=== PATIENT | male | born 1975 | race African-American/Black ===

== ENCOUNTER 2019-02-08 06:17 | Day surgery (SDC) | payer BC | END 2019-02-08 10:20 | disposition home or self-care (01) | LOC: D.OPS 06:17 | DX: C61 Malignant neoplasm of prostate (principal); Z01.812 Encounter for preprocedural laboratory examination ==

== ENCOUNTER → 2019-02-19 11:11 | Outpatient (CLI) | payer BC ==
[2019-02-08 07:41] VITALS: BMI 35.0
[~2019-02-19 11:11] MED LIST: HYDRALAZINE HCL50 MG
== END | disposition home or self-care (01) ==
LOC: D.CT 10:00 → D.NM 10:00 → D.CT 11:11
PROVIDERS: ATTEND Urology
DX: C61 Malignant neoplasm of prostate (principal)

== ENCOUNTER → 2019-03-14 15:18 | Outpatient (CLI) | payer BC ==
[2019-02-08 07:41] VITALS: BMI 35.0
== END | disposition home or self-care (01) ==
LOC: D.RAD 15:18
PROVIDERS: ATTEND Urology
DX: R94.8 Abnormal results of function studies of other organs and systems (principal)

== ENCOUNTER 2019-04-05 00:39 | Inpatient (IN) | payer MEDICARE ==
[~2019-04-05] VITALS: Ht 180.3 cm; Wt 101.3 kg
[~2019-04-05 00:39] MED LIST changes: -HYDRALAZINE HCL50 MG; +HYDRALAZINE HCL50 MG PO
[2019-04-05 01:46] LABS: HEMOGLOBIN 14.2 g/dL (13.5-17.5); MCH 30.9 pg (26.0-34.0); MCHC 34.6 g/dL (31.0-37.0); MCV 89.1 fL (80.0-100.0); MEAN PLATELET VOLUME 11.4 fL (7.4-10.4); PLATELET COUNT 243 10x3/uL (130-400); RDW 13.1 % (11.5-14.5); WBC 21.7 10x3/uL (4.8-10.8)
[2019-04-05 01:47] LABS: APTT 42.9 SECONDS (22.8-39.4); INR 1.21 (0.85-1.17); PROTIME 14.8 SECONDS (11.6-15.0)
[2019-04-05 01:51] LABS: ALBUMIN 3.1 g/dL (3.4-5.0); ALKALINE PHOSPHATASE 93 U/L (46-116); ALT (SGPT) 52 U/L (10-68); BILIRUBIN - TOTAL 1.66 mg/dL (0.2-1.3); CALC OSMOLALITY 275 mosm/kg (275-300); CALCIUM 8.6 mg/dL (8.5-10.1); CARBON DIOXIDE 26.1 mmol/L (21.0-32.0); CHLORIDE - SERUM 98 mmol/L (98-107); CREATININE - SERUM 1.5 mg/dL (0.6-1.3); GLUCOSE 149 mg/dL (74-106); POTASSIUM - SERUM 3.2 mmol/L (3.5-5.1); PROTEIN - SERUM 8.3 g/dL (6.4-8.2); SODIUM 137 mmol/L (136-145); UREA NITROGEN 11 mg/dL (7-18); eGFR NON AFRICAN AMERICAN 54 mL/min (90-120)
[2019-04-05 02:02] LABS: APPEARANCE CLOUDY (CLEAR); BILIRUBIN NEGATIVE (NEGATIVE); COLOR DK YELLOW (YELLOW); GLUCOSE NEGATIVE (NEGATIVE); KETONE NEGATIVE (NEGATIVE); NITRITE NEGATIVE (NEGATIVE); PROTEIN 3+ mg/dL (NEGATIVE)
[2019-04-05 02:03] LABS: BACTERIA MODERATE /hpf (NONE SEEN); EPITHELIAL CELLS 0-5 /hpf (0-5); GRANULAR CAST 0-5 /lpf (NONE SEEN); MUCUS <1+ /lpf (NONE SEEN); RED CELLS - URINE 0-5 /hpf (0-5)
[2019-04-05 02:04] LABS: CKMB 0.3 U/L (0.0-3.6); CREATINE KINASE 135 UL (21-232); TROPONIN-I < 0.017 ng/mL (0.000-0.060)
[2019-04-05 02:06] LABS: LYMPHOCYTES 4 % (15-50); MONOCYTES 7 % (2-11); NEUTROPHILS 71 % (40-80); PLATELET ESTIMATE NORMAL
[2019-04-05 05:27] VITALS: BMI 34.1
--- NOTE | 2019-04-05 07:10 | NUR ---
REPORT RECEIVED FROM CHIEF DEPUTY CLERK/BAILIFF AND PATIENT CARE ASSUMED. PATIENT IS AWAKE, ALERT AND ORIENTED X 4. PATIENT IS STABLE AND VSS. PATIENT DENIES ANY NEEDS OR PAIN. WILL CONTINUE WITH PLAN OF CARE. SR UP X 2 BED IN LOW POSTION AND CALL LIGHT IN REACH.
[2019-04-05 08:22] VITALS: BP 128/76
[2019-04-05 11:35] VITALS: Ht 180.3 cm; Wt 101.3 kg
[2019-04-05 13:22] VITALS: BP 131/76
[2019-04-05 14:41] LABS: UDS - AMPHET NEGATIVE QUAL (NEGATIVE); UDS - BARB NEGATIVE QUAL (NEGATIVE); UDS - BENZO NEGATIVE QUAL (NEGATIVE); UDS - COCAINE NEGATIVE QUAL (NEGATIVE); UDS - OPIATE POSITIVE QUAL (NEGATIVE); UDS - PCP NEGATIVE QUAL (NEGATIVE); UDS - THC NEGATIVE QUAL (NEGATIVE)
--- NOTE | 2019-04-05 15:15 | NUR ---
PATIENT HAS BEEN WALKING UNIT FREQUENTLY. MOTHER AT BS. DR TORRES IN ROOM. PATIENT DENIES ANY NEEDS OR PAIN. PATIENT IS STABLE AND VSS. WILL CONTINUE TO MONITOR.
[2019-04-05 17:31] VITALS: BP 118/77
--- NOTE | 2019-04-05 19:30 | NUR ---
REPORT RECIVED. PT SEMI FOWLERS IN BED. NO S/S OF DISTRESS. BREATHING EVEN AND UNLABORED. CALL LIGHT WITHIN REACH. BED IN LOWEST POSITION. PT ZULEIMA ANY NEEDS AT THIS TIME. WILL CONT WITH POC.
[2019-04-05 20:00] VITALS: BP 125/66
--- NOTE | 2019-04-05 23:55 | NUR ---
PT RESTING AT THIS TIME. MOTHER SLEEPING AT BEDSIDE. NO S/S OF DISTRESS. BREATHING EVEN AND UNLABORED. CALL LIGHT WITHIN REACH. WILL CONT WITH POC.
[2019-04-06] VITALS: BP 127/74
[2019-04-06 04:00] VITALS: BP 127/71
--- NOTE | 2019-04-06 06:30 | NUR ---
PT RESTING AT THIS TIME. NO S/S OF DISTRESS. BREATHING EVEN AND UNLABORED. PT DENIES ANY NEEDS AT THIS TIME. CALL LIGHT WITHIN REACH. PIV PATENT AND INTACTED. WILL CONT WITH POC.
[2019-04-06 06:39] LABS: ANION GAP 13.6 mmol/L (8-16); CALCIUM 8.6 mg/dL (8.5-10.1); CARBON DIOXIDE 23.1 mmol/L (21.0-32.0); CREATININE - SERUM 1.3 mg/dL (0.6-1.3); MAGNESIUM - SERUM 2.2 mg/dL (1.8-2.4); PHOSPHOROUS 2.1 mg/dL (2.5-4.9)
[2019-04-06 06:40] LABS: POTASSIUM - SERUM 3.7 mmol/L (3.5-5.1)
[2019-04-06 06:42] LABS: BASOPHILS 0.3 % (0-2); EOSINOPHILS 1.4 % (0-7); HEMATOCRIT 34.6 % (42.0-54.0); HEMOGLOBIN 11.6 g/dL (13.5-17.5); IMMATURE GRANULOCYTES 1.3 % (0-5); LYMPHOCYTES 12.1 % (15-50); MCH 30.7 pg (26.0-34.0); MCHC 33.5 g/dL (31.0-37.0); MEAN PLATELET VOLUME 11.4 fL (7.4-10.4); NEUTROPHILS 69.9 % (40-80); PLATELET COUNT 232 10x3/uL (130-400); RBC 3.78 10x6/uL (4.20-6.10); RDW 13.7 % (11.5-14.5)
[2019-04-06 06:45] LABS: MCV 91.5 fL (80.0-100.0); WBC 14.1 10x3/uL (4.8-10.8)
[2019-04-06 09:49] VITALS: BP 132/71
--- NOTE | 2019-04-06 10:49 | NUR ---
PATIENT IS ALERT AND ORIENTED AND UP AT [place]. MOTHER AT BEDSIDE. FAMILY IS VERY CONSERNED ABOUT THIS PATIENTS CARE AND WANTS TO KNOW IF WE ARE UNDERSTAFFED. I REASSURE HER THAT THE PATIENT WILL HAVE EXXCELLENT CARE AND WE ARE COMFORTABLY STAFFED. A RESPIRATORY CULTURE CUP IS BROUGHT TO ROOM AND PATIENT SHOWN HOW TO USE IT. PATIENT REPORTS THAT HE ASKED RESPIRATORY STAFF TO CHANGE HIS MEDICATION BECAUSE THE RESPIRATORY MEDICATIONS ARE CAUSEING HIM NOT TO SLEEP.
[2019-04-06 12:21] VITALS: BP 137/79
--- NOTE | 2019-04-06 14:52 | NUR ---
respiratory culture brought to lab. family at bedside. Patient denies any needs at this time.
--- NOTE | 2019-04-06 16:51 | EC ---
PATIENT:KAMRON KELLY DATE OF SERVICE: 04/05/19 SEX: M MEDICAL RECORD: [id number] DATE OF : [birth year] LOCATION:D.M2 D.210 AGE OF PATIENT: 43 ADMISSION DATE: 04/05/19 REFERRING PHYSICIAN: INTERPRETING PHYSICIAN: MICHAEL ZHANG MD ECHOCARDIOGRAM REPORT ECHO CHARGES 4 ECHO COMPLETE Date: 04/05/19 CLINICAL DIAGNOSIS: CHF ECHOCARDIOGRAPHIC MEASUREMENTS (adult normal given) AC root (d.<3.7cm) 3.3 cm LV Septum d (<1.2 cm> 1.7 cm Valve Excursion 2.3 cm LV Septum (systole) 2.3 cm Left Atria (s.<4.0cm> 4.0 cm LVPW d(<1.2cm) 1.7 cm RV (d.<2.3cm) 2.4 cm LVPW (sytole) 2.3 cm LV diastole(<5.6CM) 4.8 cm MV E-F(>70mm/sec) cm LV systole 2.6 cm LVOT Diameter 2.1 cm MV exc.(>10mm) cm Est.ejection fraction (50-75%) % DOPPLER: LVIT cm/sec A 53.0 cm/sec E 74.0 cm/sec LA cm/sec RVSP 25.3 mmHg LVOT 145 cm/sec AOP1/2T m/s Asc. Ao 180 cm/sec RVOT 75.0 cm/sec RA cm/sec PA 104 cm/sec AV Gradient Peak 13.0 mmHg AV Mean 6.5 mmHg AV Area 2.4 cm MV Gradient Peak 3.2 mmHg MV Mean 1.6 mmHg MV Area cm COMMENTS: Catering Assistant: Marcos TORRESOE Splicer Operator: 1 Dr. Zhang TAPE# PACS Pericardial Effusion N DATE OF SERVICE: 04/05/2019 ECHOCARDIOGRAM DATE OF SERVICE: 04/05/2019 FINDINGS: 1. Left ventricular chamber size is within normal limits. Left ventricular systolic function is normal. Overall ejection fraction estimated at 55%. 2. Left atrium is enlarged at 4.0 cm. Right atrium and right ventricle chamber ECHOCARDIOGRAM REPORT [id number] KAMRON KELLY sizes are as well mildly dilated. 3. Valvular structures have normal structure and motion. 4. Doppler interrogation reveals no significant valvular insufficiency or stenosis and pulmonary systolic pressure is normal estimated at 25 mmHg. 5. No evidence of pericardial effusion or left ventricular thrombus. TRANSINT:[id number] Voice Confirmation ID: [id number] DOCUMENT ID: [id number] MICHAEL ZHANG MD at 1651 CC: [id number] DICTATION DATE: 04/06/19 1050 LACING PRESSER: 04/06/19 1106 ADM IN [facility] [id number] [place] [address]
[2019-04-06 17:31] VITALS: BP 133/81
--- NOTE | 2019-04-06 19:41 | NUR ---
PT ALERT AND O X4 BED LOW AND LOCKED WITH SR X1 AND CALL LIGHT IN REACH LUNGS CLEAR WITH A LITTLE DEMINUISHED AIRFLOW O2 NOT IN USE AT THIS TIME AND PT DENIES NEEDS
[2019-04-06 20:00] VITALS: BP 132/68
[2019-04-07] VITALS: BP 130/72
--- NOTE | 2019-04-07 04:03 | NUR ---
I have reviewed this patient and I concur with the Shift Assessment completed by the Licensed Practical Nurse today this shift.
[2019-04-07 04:30] VITALS: BP 125/72
[2019-04-07 05:03] LABS: HEMATOCRIT 34.6 % (42.0-54.0); HEMOGLOBIN 11.4 g/dL (13.5-17.5); MCH 30.4 pg (26.0-34.0); MCHC 32.9 g/dL (31.0-37.0); MCV 92.3 fL (80.0-100.0); MEAN PLATELET VOLUME 10.7 fL (7.4-10.4); PLATELET COUNT 269 10x3/uL (130-400); RBC 3.75 10x6/uL (4.20-6.10); RDW 13.6 % (11.5-14.5); WBC 12.3 10x3/uL (4.8-10.8)
[2019-04-07 05:13] LABS: ANION GAP 12.9 mmol/L (8-16); CALCIUM 8.7 mg/dL (8.5-10.1); CARBON DIOXIDE 25.6 mmol/L (21.0-32.0); CREATININE - SERUM 1.2 mg/dL (0.6-1.3); POTASSIUM - SERUM 3.5 mmol/L (3.5-5.1)
[2019-04-07 05:16] LABS: PHOSPHOROUS 3.6 mg/dL (2.5-4.9)
[2019-04-07 05:40] LABS: EOSINOPHILS 2 % (0-7); LYMPHOCYTES 26 % (15-50); MONOCYTES 10 % (2-11); NEUTROPHILS 60 % (40-80); PLATELET ESTIMATE NORMAL; PLATELET MORPHOLOGY GIANT PLTS PRESENT
--- NOTE | 2019-04-07 07:51 | NUR ---
PATIENT IS ALERT AND ORIENTED. HE IS UP AND WALKING THE HALLS AND STATES THAT HE IS READY TO GO HOME THIS MORNING. HE IS QUESTIONING WHY HE NEEDS A XRAY BEFORE DISCHARE. HE STATES HE HAS A APPOINTMENT WITH DR DECKER NEXT WEEK. HE STATES CONSERNS ABOUT HIS INSURANCE AND THE COST OF THE HOSPITAL STAY. HE HAS A QUESTION ABOUT ALMOST EVERY MEDICATION OR PROCEDURE. SIGNIFICANT OTHER IS AT BEDSIDE.
[2019-04-07 08:06] VITALS: BP 145/75
[2019-04-07 12:26] VITALS: BP 141/79
--- NOTE | 2019-04-07 13:48 | MORECARE ---
CASE MANAGEMENT DISCHARGE SUMMARY PATIENT: KAMRON KELLY UNIT: [id number] ADM DATE: 04/05/19 AGE: 43 : [birth year] SEX: M ROOM/BED: D.2103 AUTHOR: VIDHYA PHILLIPS PHYSICIAN: REFERRING PHYSICIAN: RUPERT DECKER DO DATE OF SERVICE: 04/07/19 Discharge Plan Patient Name: KAMRON KELLY [facility] : 1975 Planned Disposition: Anticipated Discharge Date: Discharge Date: Expected LOS: Initial Reviewer: DORIS Initial Review Date: 04/07/2019 Generated: 04/07/19 2:47 pm DCPIA - Discharge Planning Initial Assessment Updated by DORIS: Madelin Santacruz on 04/07/19 1:47 pm * Is the patient Alert and Oriented? Yes * How many steps to enter\exit or inside your home? * PCP belle * [facility] [address] * Preadmission Environment Home with Family * ADLs Independent * Verbal permission to speak to the caregivers and representatives has been obtained from the patient. N/A * Additional services required to return to the preadmission environment? No * Can the patient safely return to the preadmission environment? Yes * Has this patient been hospitalized within the prior 30 days at any hospital? No Patient Name: KAMRON KELLY Page [id number] at 1348 All edits/amendments must be made on the electronic document DICTATION DATE: 04/07/19 1347 HORSESHOER: NEETA 04/07/19 1347 RPT#: [id number] DC DATE: STATUS: ADM IN [facility] [address] [place] [address] END OF REPORT
--- NOTE | 2019-04-07 13:55 | MORECARE ---
CASE MANAGEMENT DISCHARGE SUMMARY PATIENT: KAMRON KELLY UNIT: [id number] ADM DATE: 04/05/19 AGE: 43 : [birth year] SEX: M ROOM/BED: D.2885 AUTHOR: VIDHYA PHILLIPS PHYSICIAN: REFERRING PHYSICIAN: RUPERT DECKER DO DATE OF SERVICE: 04/07/19 Discharge Plan Patient Name: KAMRON KELLY Facility: [facility]:[place] : 1975 Planned Disposition: Anticipated Discharge Date: Discharge Date: Expected LOS: Initial Reviewer: [email or web address] Initial Review Date: 04/07/2019 Generated: 04/07/19 2:54 pm Comments DCP- Discharge Planning Updated by [id number]: Madelin Santacruz on 04/07/19 12:[address] Patient Name: KAMRON KELLY Admission Status: ER Accout number: [id number] Admission Date: 04-05-2019 : 1975 Admission Diagnosis: Attending: RUPERT DECKER Current LOS: 2 Anticipated DC Date: Planned Disposition: Primary Insurance: [employer] Discharge Planning Comments: CM MET WITH PT AFTER VERBAL CONSENT TO DO INITIAL CM ASSESSMENT. CM EXPLAINED THE ROLE OF A CM AND SERVICES AVAILABLE LIKE HOME HEALTH, REHAB AND DME. PT STATED HE WILL RETURN HOME WITH FAMILY. PT FEELS THIS IS A SAFE DC PLAN AND DENIES AND CM NEEDS AT THIS TIME. CM WILL CONTINUE TO FOLLOW. Information Systems Architect: Madelin Santacruz DCPIA - Discharge Planning Initial Assessment Updated by [email or web address]: Madelin Santacruz on 04/07/19 1:47 pm * Is the patient Alert and Oriented? Yes * How many steps to enter\exit or inside your home? * PCP belle * Pharmacy [facility] [address] * Preadmission Environment Home with Family * ADLs Independent * Verbal permission to speak to the caregivers and representatives has been obtained from the patient. N/A * Additional services required to return to the preadmission environment? No * Can the patient safely return to the preadmission environment? Yes * Has this patient been hospitalized within the prior 30 days at any hospital? No Last DP export: 04/07/19 12:48 p Patient Name: KAMRON KELLY Page [id number] at 1355 All edits/amendments must be made on the electronic document DICTATION DATE: 04/07/19 1355 KICKING MACHINE OPERATOR: NEETA 04/07/19 1352 RPT#: [id number] DC DATE: STATUS: ADM IN [facility] [address] [place] [address] END OF REPORT
[2019-04-07] MEDS ORDERED: OMNICEF300 MG PO (15:19)
[2019-04-07] MEDS ORDERED: LEVOFLOXACIN500 MG PO (15:19)
[2019-04-07 15:59] VITALS: BP 143/78
--- NOTE | 2019-04-07 17:22 | NUR ---
PATIENT DISCHARGE COMPLETED. DISCHARGE TEACHING DONE AND PAPERS SIGNED. PATIENT IS GOING HOME WITH FAMILY. HE LEFT THE FLOOR ON FOOT AND STATES THAT HE IS GOING TO BACK TO WORK AND WILL COME BACK TUESDAY TO MAKE SURE THE DR AGREES THAT IT IS SAFE FOR HIM TO RETURN TO WORK. IV IN LEFT FOREARM REMOVED WITH CATHETER INTACT , PATIENT TOLERATED. ALL PATIENT BELONGINGS HAVE BEEN REMOVED FROM THE ROOM.
--- NOTE | 2019-04-09 08:39 | MORECARE ---
CASE MANAGEMENT DISCHARGE SUMMARY PATIENT: KAMRON KELLY UNIT: [id number] ADM DATE: 04/05/19 AGE: 43 : [birth year] SEX: M ROOM/BED: D.9467 AUTHOR: JACQUELINEDOC PHYSICIAN: REFERRING PHYSICIAN: RUPERT DECKER DO DATE OF SERVICE: 04/09/19 Discharge Plan Patient Name: KAMRON KELLY Facility: [facility]:[place] : 1975 Planned Disposition: Home Anticipated Discharge Date: 04/07/19 Discharge Date: 04/07/2019 Expected LOS: 2 Initial Reviewer: DORIS Initial Review Date: 04/07/2019 Generated: 04/09/19 9:39 am Comments DCP- Discharge Planning Updated by [email or web address]: Madelin Santacruz on 04/07/19 12:[address] Patient Name: KAMRON KELLY Admission Status: ER Accout number: [id number] Admission Date: 04-05-2019 : 1975 Admission Diagnosis: Attending: RUPERT DECKER Current LOS: 2 Anticipated DC Date: Planned Disposition: Primary Insurance: [employer] Discharge Planning Comments: CM MET WITH PT AFTER VERBAL CONSENT TO DO INITIAL CM ASSESSMENT. CM EXPLAINED THE ROLE OF A CM AND SERVICES AVAILABLE LIKE HOME HEALTH, REHAB AND DME. PT STATED HE WILL RETURN HOME WITH FAMILY. PT FEELS THIS IS A SAFE DC PLAN AND DENIES AND CM NEEDS AT THIS TIME. CM WILL CONTINUE TO FOLLOW. Business Process Expert: Madelin Santacruz DCPIA - Discharge Planning Initial Assessment Updated by [id number]: Madelin Santacruz on 04/07/19 1:47 pm * Is the patient Alert and Oriented? Yes * How many steps to enter\exit or inside your home? * PCP belle * Pharmacy [facility] [address] * Preadmission Environment Home with Family * ADLs Independent * Verbal permission to speak to the caregivers and representatives has been obtained from the patient. N/A * Additional services required to return to the preadmission environment? No * Can the patient safely return to the preadmission environment? Yes * Has this patient been hospitalized within the prior 30 days at any hospital? No Last DP export: 04/07/19 12:55 p Patient Name: KAMRON KELLY Page [phone] at 0839 All edits/amendments must be made on the electronic document DICTATION DATE: 04/09/19838 PHOTOGRAVURE PRESS OPERATOR: NEETA 04/09/1939 RPT#: [id number] DC DATE:04/07/19 STATUS: DIS IN [facility] [address] [place] [address] END OF REPORT
== END 2019-04-07 17:24 | disposition home or self-care (01) | DRG 871 ==
LOC: D.ER 00:39 → D.M2 02:08
PROVIDERS: Emergency Medicine; Internal Medicine Nephrology; ADMIT Family Medicine; ATTEND Family Medicine
DX: A41.9 Sepsis, unspecified organism (principal); J96.01 Acute respiratory failure with hypoxia; J15.6 Pneumonia due to other Gram-negative bacteria; N17.9 Acute kidney failure, unspecified; J44.1 Chronic obstructive pulmonary disease with (acute) exacerbation; J44.0 Chronic obstructive pulmonary disease with (acute) lower respiratory infection; E87.6 Hypokalemia; I10 Essential (primary) hypertension; C61 Malignant neoplasm of prostate; F10.10 Alcohol abuse, uncomplicated; F11.90 Opioid use, unspecified, uncomplicated; E83.39 Other disorders of phosphorus metabolism